=== PATIENT | female | born 2000 | race Caucasian/White ===

== ENCOUNTER 2024-03-28 03:39 | Inpatient (IN) | payer OTHER, MEDICAID, SELFPAY ==
[2024-03-28] VITALS (22 sets, daily range): BP systolic 113–162; BP diastolic 63–102; PULSE 56–111; RESP 15–16; TEMP 36.5–37.4; O2SAT 97–99; BMI 29.5
[2024-03-28 03:36] LABS: ROM Internal Control Test YES-OK TO RESULT pt. (Internal QC)
[2024-03-28 03:38] LABS: ROM Patient Test POSITIVE (Negative); Record Kit Lot#, ROM+ K2451
[2024-03-28] MEDS: Lactated Ringers 1,000 ML 999 ML IV (04:00)
[2024-03-28 04:20] LABS: Absolute Lymphocyte Count 2.38 X10^3/uL (0.83-4.51); Absolute Neutrophil Count 8.5 X10^3/uL (2.0-7.7); Basophil# 0.07 X10^3/uL; Basophil% 0.6 % (0-1); Eosinophil# 0.06 X10^3/uL; Eosinophils% 0.5 % (0-5); Hematocrit 34.6 % (37-47); Hemoglobin 11.7 g/dL (12.0-15.0); Lymphocyte # 2.38 X10^3/ul (0.83-4.51); Mean Corp Hgb Conc 33.8 g/dL (32-36); Mean Corpuscular Hgb 28.1 pg (27.0-32.0); Mean Corpuscular Volume 83.2 fL (81-99); Mean Platelet Vol. 10.2 fl (6.2-12.0); Monocyte# 0.75 X10^3/uL; Monocyte% 6.3 % (0-10); NRBC Flagged by Analyzer 0 % (0-5); Neutrophil # 8.51 X10^3/uL (2.7-7.7); Neutrophil % 71.3 % (47-70); Platelet Count 317 K/mm3 (150-450); RBC Distribution Width CV 14.1 % (11.6-14.6); RBC Distribution Width SD 42.3 fl (35.1-43.9); Red Blood Count 4.16 M/mm3 (4.2-5.4); White Blood Count 11.9 K/mm3 (4.4-11.0)
[2024-03-28 04:30] LABS: Prothrombin Time (Protime)PT. 13.3 SECONDS (11.7-14.9)
[2024-03-28 04:31] LABS: Partial Thromboplast Time 28.8 Seconds (24.1-36.2)
[2024-03-28 04:51] LABS: LDH 295 U/L (84-246)
[2024-03-28] MEDS: Oxytocin 10 UNITS/ML Vial IM (04:55)
[2024-03-28] MEDS: Oxytocin 15 Units/NS 250ml 15 UNITS/250 ML IV.SOLN 83 UNITS IV (05:00)
--- NOTE | 2024-03-28 05:17 | OB.VAGDELI_ITS ---
Maternal Data Information Final MCKENZIE: 04/30/24 Gestational age: 39 2/7 Vaginal Delivery Maternal Presentation Maternal Presentation: Active Labor Vaginal Delivery Information Procedure Performed: Spontaneous Vaginal Delivery Surgeon/Practitioner: Yee Li Date of Procedure: 03/28/24 Pre-Procedure Diagnosis: labor Post-Procedure Diagnosis: same Type of anesthesia: Local with 1% Lidocaine (20 cc) Estimated Blood Loss: 500 Time of Delivery: 04:48 Findings Description of procedure: A vigorous [female] was delivered BUD over [a second-degree perineal laceration]. The baby delivered easily through the loose nuchal cord x 1. The remainder the infant was delivered with maternal pushing and gentle traction only in less than 15 seconds. The Pitocin infusion was initiated for active management of the third stage. The cord was clamped and cut after cord pulsations ceased. The was attended to by the waiting nursing staff. The placenta was delivered spontaneously and intact. The cervix and vagina were intact. There was mild atony without hemorrhage which responded to uterine massage and 1 dose of Methergine IM and Pitocin. [The second-degree perineal laceration was repaired with 2-0 Vicryl suture in a running standard fashion.] Sponge and needle counts were correct. A vaginal sweep was completed by me. Presentation: BUD Amniotic Membrane Rupture Type: Spontaneous Amniotic Fluid Description: Clear Placental Delivery Description: Spontaneous Placenta Disposition: [facility] Specimen collected: No Cord Vessel Description: 3 Vessels Cord Entanglement: Around neck x 1, loose Nuchal Cord Compression: Without compression A Gender: Female (Nidia) (1 minute): 8 (5 minute): 9 Delayed Cord Clamping: Yes Credit Historian deep submergence vehicle operator: No Post Vaginal Deli Medications given after delivery: IV Pitocin and IM Methergin Episiotomy Description: None Laceration: 2nd degree Complication Complications: No
--- NOTE | 2024-03-28 05:20 | HP.PCM.OB_ITS ---
HPI - General General Date of Admission: 03/28/24 Date of Service: 03/28/24 Chief Complaint: contractions HPI Narrative GIRISH SHOOK, is a 23 F who presents 1 para 0 at 39-2/7 weeks gestation complaining contractions. Contractions started approximately 2 AM and then she had spontaneous rupture membranes. She arrived to labor and delivery and was found to be in active labor. 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 Maternal Data Information Final MCKENZIE: 04/30/24 Gestational age: 39 2/7 [facility] Medical History (Updated 03/28/24 @ 05:[address] Yee Li MD) Depression Gestational diabetes Anxiety Home Medications ?Medication ?Instructions ?Recorded ?Last Taken ?Type sertraline 100 mg tablet 125 mg PO DAILY see provider 03/28/24 03/27/24 21:00 History Allergy/AdvReac Type Severity Reaction Status Date / Time bee pollen Allergy Mild congestion Verified 03/28/24 03:15 Environmental Allergies: Allergy Mild congestion Verified 03/28/24 03:15 Uncoded (dust) Social History Smoking Status: Former smoker History Elective abortions Hx Para 0 Spontaneous abortions Hx # Term Pregnancies Ectopic pregnancies Hx # Pregnancies Multiple births # of living children ROS Constitutional Constitutional: Denies fatigue, fever(s) or malaise Eyes Eyes: Denies change in vision ENT HEENT: Denies dizziness or headache(s) Cardiovascular Cardiovascular: Denies chest pain, dyspnea or lightheadedness Respiratory/Chest Respiratory/Chest: Denies cough or dyspnea Gastrointestinal Gastrointestinal: Denies change in bowel habits Genitourinary Genitourinary: Denies burning urination or genital lesions Integumentary Integumentary: Denies rash Neurologic Neurologic: Denies confusion, dizziness, headache(s), numbness or weakness Vital Signs Vital Signs Vital Signs: 03/28/24 03:22 03/28/24 03:22 03/28/24 03:22 Temperature Temperature Source Pulse Rate 77 Respiratory Rate Blood Pressure 162/102 H BP Systolic 162 BP Diastolic 102 Pulse Ox 98 03/28/24 03:22 03/28/24 03:22 03/28/24 03:22 Temperature 98.5 F Temperature Source Temporal Pulse Rate Respiratory Rate 16 Blood Pressure BP Systolic BP Diastolic Pulse Ox 03/28/24 03:25 03/28/24 03:25 03/28/24 04:36 Temperature Temperature Source Pulse Rate 90 78 Respiratory Rate Blood Pressure 143/93 H BP Systolic 143 BP Diastolic 93 Pulse Ox 03/28/24 04:36 03/28/24 05:07 03/28/24 05:07 Temperature Temperature Source Pulse Rate 108 H Respiratory Rate Blood Pressure 113/63 BP Systolic 113 BP Diastolic 63 Pulse Ox 99 03/28/24 05:16 03/28/24 05:16 Temperature Temperature Source Pulse Rate 111 H Respiratory Rate Blood Pressure 118/74 BP Systolic 118 BP Diastolic 74 Pulse Ox Weight Weight: 83.007 kg Body Mass Index (BMI) 29.5 Physical Exam Const alert and no apparent distress General Appearance: cooperative HEENT normocephalic Resp normal respiratory effort Cardio regular rate GI soft to palpation GI Narrative: gravid, nontender, appropriate for gestational age Extremity no calf tenderness General Extremity: edema Skin no wounds Rashes: No rashes noted Psych activity/motor behavior normal Labs Labs Labs: Blood Type Pending Antibody Screen Pending Hct 34.6 % (37-47) L Hgb 11.7 g/dL (12.0-15.0) L Syphilis Total Ab Pending Assessment & Plan (1) 39 weeks gestation of : (2) Spontaneous onset of labor:
[2024-03-28 05:55] LABS: Amphetamine Urine NEGATIVE (<1000 ng/mL); Barbiturate Urine VISTA NEGATIVE (< 200 ng/mL); Benzodiazepine Urine VISTA NEGATIVE (< 200 ng/mL); Cocaine Urine VISTA NEGATIVE (< 300 ng/mL); Ecstacy Urine VISTA NEGATIVE (< 500 ng/mL); Methadone Urine VISTA NEGATIVE (< 300 ng/mL); PCP Urine VISTA NEGATIVE (< 25 ng/mL); THC Urine VISTA POSITIVE (< 50 ng/mL); Vista UDS pH Range 6
[2024-03-28] MEDS: Methylergonovine 0.2 MG/ML Ampul IM (05:55)
[2024-03-28] MEDS: Lidocaine 1% (20 ml mdv) 20 ML Vial INFILT (05:56)
[2024-03-28 05:58] LABS: AST(SGOT) 15 U/L (15-37); Alanine Aminotransfer ALT/SGPT 16 U/L (13-56); Creatinine, Serum 0.72 mg/dL (0.55-1.02); EST Glomerular Filtration Rate 107 mL/min (>60); Est Glom Filt Rate - Afr Amer 129 mL/min (>60); Estimated Creatinine Clearance 133.08 ml/min; Uric Acid 2.9 mg/dL (2.6-6.0)
[2024-03-28] MEDS: Acetaminophen 500 MG Tablet 1000 MG PO ×3 (06:00→22:41)
[2024-03-28] MEDS: Mag Hydrox/Al Hydrox/Simeth 30 ML UDC PO (06:33)
[2024-03-28 08:05] LABS: Bedside Glucose 103 mg/dL (74-106)
[2024-03-28] MEDS: Ibuprofen 600 MG Tablet PO ×2 (09:01→16:28)
[2024-03-28] MEDS: Sertraline 100 MG Tablet PO (09:02)
[2024-03-28] MEDS: Sertraline 50 MG Tablet 25 MG PO (09:02)
[2024-03-28 11:00] LABS: Syphilis Antibodies Non-reactive
--- NOTE | 2024-03-28 13:48 | NURSING ---
1315 pt up to shower- pt voided twice and missed hat
[2024-03-29] VITALS: BP 131/82; PULSE 72; RESP 16; TEMP 36.7; O2SAT 100
[2024-03-29 04:00] VITALS: BP 119/72; PULSE 75; RESP 16; TEMP 36.6; O2SAT 99
[2024-03-29 05:47] LABS: Bedside Glucose 72 mg/dL (74-106)
[2024-03-29 07:40] VITALS: BP 126/84; PULSE 73; RESP 16; TEMP 36.8; O2SAT 100
[2024-03-29] MEDS: Ibuprofen 600 MG Tablet PO (07:40)
--- NOTE | 2024-03-29 10:38 | PCM.PN.OB ---
Subjective Subjective Patient is doing well and offers no complaints. Some difficulty with breast-feeding. Ambulating and voiding without difficulty. Lochia is normal. She denies chest pain, shortness of breath, lightheadedness, dizziness, leg pain. Objective Data Objective Data Vital Signs: Vital Signs Temp Pulse Resp BP Pulse Ox O2 Del Method 98.2 F 73 16 126/84 H 100 Room Air 03/29/24 07:40 03/29/24 07:40 03/29/24 07:40 03/29/24 07:40 03/29/24 07:40 03/29/24 07:40 Oxygen Delivery Method Room Air Weight: 183 lb Body Mass Index (BMI) 29.5 Intake & Output: Intake and Output for Last 24 Hours 03/27/24 03/28/24 03/29/24 23:59 23:59 23:59 Intake Total 1049.20 / 1049.20 Output Total 500 / 500 Balance 549.20 / 549.20 Lab / Micro Data 03/28/24 04:00 03/28/24 04:00 Labs: Laboratory Results - last 24 hr 03/28/24 04:00: Syphilis Total Ab Non-reactive 03/29/24 05:23: POC Glucose 72 L Physical Exam Const alert and no apparent distress General Appearance: comfortable HEENT normocephalic Resp normal respiratory effort GI soft to palpation, non-tender and non-distended Extremity no calf tenderness Assessment & Plan (1) Vaginal delivery: PLAN: Patient is day 1 from a vaginal delivery. Doing well. Some difficulty with breast-feeding. Routine care, and plan discharge to home tomorrow.
--- NOTE | 2024-03-29 11:15 | CASEMGMT ---
Social Work Assessment Labor and Delivery Unit Patient Address: [address] [place] [address] Phone number: [phone] Date of Referral: 03/28/24 Time of Referral: 03:54 Referred By: Yee Li Date of Intervention: 03/29/24 Time of Intervention: 11:15 Reason for Referral: Mental Health/depression and anxiety History obtained from: Medical records, mother of baby (MOB) and father of baby (FOB).? Household composition: MOB, FOB (Zac Whittaker, age 28), daughter Nidia Whittaker, born 03/28/2024 and MOB and FOB?s 2 male roommates who are expected to both be moving out in the near future. Patient's parent/guardian status: MOB and FOB have been together for almost 4 years and are not . ?Both are actively involved and will be providing care for baby. MOB denied any concerns with domestic violence and described a positive and supportive relationship with the FOB. Medical History: ?, 1, Para, now 1. MOB received PNC through [facility] beginning at 13 weeks and 0 days. Visits were observed to be routine. Apgars: 8 and 9. Weight: 6lbs, 0oz. [employer] Counselor: Amanda Benavides Educational Status: MOB and FOB denied any issues or concerns with reading or writing. MOB and FOB are both High School graduates. Financial Status: MOB and FOB reported their income is sufficient to meet the needs of their family at this time. MOB is planning on being a [id number] mom (SAHM) and the FOB works full-time for [employer]. Supplies: MOB and FOB reported they have all the supplies they need for baby at this time including but not limited to: Car Seat, bassinet, crib, diapers, breast pump, bottles and clothing. MOB reported she is trying to get an electric breast pump. Childcare/Caregiver(s): MOB identified herself as the person who will be the primary caregiver as a SAHM. FOB will help out when not at work. Transportation:? MOB and FOB reported they are both licensed drivers and have a reliable vehicle to take baby to and from all medical appointments. No transportation issues identified. Programs/Agencies Involved: S for Medicaid and MOB will be applying for food stamps. MOB also planning on applying for WIC and has already had phone contact with them. MOB also has a psychiatrist she see?s through [facility]. Children Services/Legal Issues:? Denied. Behavioral Health Issues: ??Mental Health History: ?MOB has a history of anxiety and medication and is currently on medication which MOB reported is effective at this time and successfully manages symptoms. MOB denied any current depression. FOB denied any mental health concerns.?Substance Use History:? FOB stated he used to be a functioning alcoholic however now only occasionally drinks on the week-ends, a few shots and denied getting intoxicated.? MOB denied any alcohol use but did smoke marijuana during . MOB also used to smoke cigarettes however stated she quit 3 months into her . ?Family History: ?s maternal grandfather (MGF) is said to be an alcoholic, and ?s Paternal great-grandfather (PGGF) is said to have been an alcoholic. MOB and FOB both reported mental health runs on both sides of the family including ?s maternal grandmother (MGM)(anxiety), and paternal grandmother (PGM) (anxiety).?? Drug Screens: MOB?s UDS was positive for cannabinoids at the time of admission.? Meta?s meconium drug screens are pending. Family/Social Stressors: ?MOB and FOB denied any current family or social stressors. Support Systems: Ample.? MOB identified her biggest supports as the FOB, MGM, PGM and ?s paternal great-grandmother (MGGM) who is a retired nurse.? All family supports live close by. ? Depression/Shaken Baby/Safe Sleeping: granite worker provided verbal and written education on PPD, Safe Sleeping and Shaken Baby.? Parents verbalized an understanding. ??? ASSESSMENT:? MOB and FOB provided consent to social work visit. Upon arrival, MOB was sitting upright in the hospital bed, FOB was in the restroom but later came out and was at MOB?s bedside and was sleeping in crib that was at the foot of the bed. MOB were both very cooperative and verbally engaged.? granite worker observed positive interaction between the MOB and FOB, both expressed their excitement for baby and MOB talked a lot about all of the things she had done at home to prepare for baby. MOB re-ported she has ?been waiting for this baby?. FOB got up and walked around some during the assessment to check on baby and to look at baby and also got up to hold hand of the MOB. At the end of the assessment, home health care social worker requested to speak with the MOB alone, which both MOB and FOB were both agreeable to. MOB denied any previous or current concerns of DV, reported she feels safe and denied any drug or alcohol abuse or unmanaged mental health concerns. Safe Plan of Care for related to substance use: ?MOB denied that she has any intentions of smoking marijuana after being discharged home. MOB reported she has been educated and is aware that she can also not smoke marijuana and breastfeed at the same time. ??Both MOB and FOB denied that either one of them will be under the influence of any drugs or alcohol while caring for . ??? PLAN:? Baby to be discharged home when ready.? granite worker also provided written information on depression, depression resources and Help Me Grow as additional resources offered by home health care social worker which MOB and FOB accepted. No other services requested or indicated. Per mandate/protocol, home health care social worker will make a referral to Children Services due to MOB?s drug use during . Khadra Connors, FINANCE DIRECTOR, MARINE PIPE WELDER
[2024-03-29 16:34] VITALS: BP 118/80; PULSE 78; RESP 16; TEMP 36.8; O2SAT 100
[2024-03-29] MEDS: Acetaminophen 500 MG Tablet 1000 MG PO (16:39)
[2024-03-29] MEDS: Sertraline 100 MG Tablet PO (16:40)
[2024-03-29] MEDS: Sertraline 50 MG Tablet 25 MG PO (16:40)
[2024-03-29 19:37] VITALS: BP 132/84; PULSE 89; RESP 18; TEMP 36.1; O2SAT 100
--- NOTE | 2024-03-29 21:53 | CASEMGMT ---
fruit harvest worker made a referral to [facility] Services with Lisa to to marijuana use during . Khadra Connors, INTAKE ASSESSOR, HEATING ELEMENT REPAIRER
[2024-03-29 22:26] VITALS: BP 132/84; PULSE 89; RESP 18; TEMP 36.1; O2SAT 100
--- NOTE | 2024-03-30 11:59 | CM.ED ---
Social work Received voicemail from May [facility] with [facility] ([phone]) requesting return call due to receiving a call from Khadra ROSEN regarding MOB testing positive for THC. Call came in at 0937; received around 1015. May asked a few questions on the voicemail, including whether the baby was tested at , who the doctor was, if referrals were made, etc. This SW reached out to PACO ROSEN via secure email at 1025 asking if Sidra would rather return the call due to possibly having updated information. Received another voicemail from May around 1135 and returned call around 1150. This SW spoke with May and answered questions as able. Informed May that it appeared baby was in the SCN currently and Sidra ROSEN would be able to answer any further questions. Informed May that this SW would reach out to Sidra ROSEN to call Lisa as soon as Sidra ROSEN was available. This SW called Sidra ROSEN and explained the situation. Sidra ROSEN stated May from [facility] was calling Sidra ROSEN currently. Sidra ROSEN to follow as needed. Trisha Carvajal, ECOMMERCE MANAGER, PYROTECHNIC ASSEMBLER
== END 2024-03-29 22:40 | disposition home or self-care (01) | DRG 807 ==
LOC: WP 03:41
PROVIDERS: Admitting Provider Obstetrics & Gynecology; PCP Nurse Practitioner Family; Referring Provider Obstetrics & Gynecology; Visit Provider Obstetrics & Gynecology
DX: O70.1 Second degree perineal laceration during delivery (principal); Z37.0 Single live birth; O99.344 Other mental disorders complicating childbirth; F32.A Depression, unspecified; F41.9 Anxiety disorder, unspecified; Z87.891 Personal history of nicotine dependence; Z3A.39 39 weeks gestation of pregnancy; Z86.32 Personal history of gestational diabetes; O75.89 Other specified complications of labor and delivery; O69.81X0 Labor and delivery complicated by cord around neck, without compression, not applicable or unspecified